=== PATIENT | female | born 2000 | race Caucasian/White ===

== ENCOUNTER 2023-11-23 17:59 | Emergency (ER) | payer OTHER ==
[~2023-11-23] VITALS: Ht 165.1 cm; Wt 62.6 kg
[2023-11-23 18:05] VITALS: BP_SYST 120; PULSE 109; RESP 18; TEMP 99.5; O2SAT 99
[2023-11-23] MEDS: IBUPROFEN 600 MG TABLET PO ONE (18:27)
[2023-11-23 18:49] LABS: BILIRUBIN,URINE NEGATIVE (NEGATIVE); BLOOD, URINE 1+ (NEGATIVE); COLOR,URINE YELLOW (YELLOW); GLUCOSE,URINE NEGATIVE (NEGATIVE); KETONES,URINE NEGATIVE (NEGATIVE); LEUKOCYTE ESTERASE ,URINE 1+ (NEGATIVE); NITRITE, URINE NEGATIVE (NEGATIVE); PROTEIN URINE NEGATIVE (NEGATIVE); UROBILINOGEN,URINE 0.2 (0.2-1.0)
[2023-11-23 18:50] LABS: CLARITY/URINE HAZY (CLEAR)
[2023-11-23 18:59] LABS: BACTERIA,URINE MODERATE /HPF (None Seen); MUCUS,URINE 1+ /LPF (None Seen)
[2023-11-23] MEDS ORDERED: NITR-85 PO (20:24)
[2023-11-23] MEDS: NITROFURANTOIN MONOHYD/M-CRYST 100 MG CAPSULE (MacroBID) PO ONE (20:37)
[2023-11-23 20:40] VITALS: BP_SYST 120; PULSE 109; RESP 18; TEMP 99.5; O2SAT 99
== END 2023-11-23 20:40 | disposition home or self-care (01) ==
LOC: SED 17:59
DX: M54.50 Low back pain, unspecified (principal); N39.0 Urinary tract infection, site not specified; Z79.899 Other long term (current) drug therapy
CPT/HCPCS: 81000; 81001; 81015; 87086; 99283

== ENCOUNTER 2024-01-05 20:37 | Emergency (ER) | payer OTHER ==
[~2024-01-05] VITALS: Ht 165.1 cm; Wt 59.9 kg
[~2024-01-05 20:37] MED LIST: NITR-85 PO
[2024-01-05 20:59] VITALS: BP_SYST 105; PULSE 100; RESP 17; TEMP 99; O2SAT 98
[2024-01-05 22:29] LABS: BASOPHILS % (AUTO) 0.2 % (0.0-2.0); EOSINOPHILS % (AUTO) 0.4 % (0.0-4.0); HEMATOCRIT 35.8 % (36-48); LYMPHOCYTES # (AUTO) 1.5 K/uL (1.0-5.5); LYMPHOCYTES % (AUTO) 18.5 % (20.5-51.5); MEAN CORPUSCULAR HEMOGLOBIN 29 pg (27-31); MEAN CORPUSCULAR HGB CONC 33 % (32-36); MEAN CORPUSCULAR VOLUME 86 fL (79.0-98.0); MONOCYTES # (AUTO) 0.9 K/uL (0.0-1.0); NEUTROPHILS # (AUTO) 5.7 K/uL (1.8-7.7); NEUTROPHILS % (AUTO) 69.9 % (40.0-70.0); PLATELET COUNT (AUTO) 264 K/uL (130-430); RED BLOOD CELL COUNT(AUTO) 4.17 MIL/uL (4.2-6.2); RED CELL DISTRIBUTION WIDTH 13.9 % (9.0-15.0); WHITE BLOOD COUNT (AUTO) 8.2 K/uL (4.8-10.8)
[2024-01-05 22:30] LABS: CREATININE 0.75 mg/dL (0.55-1.30); POTASSIUM 3.6 mmol/L (3.5-5.1)
[2024-01-05] MEDS ORDERED: AUG875 PO (23:08)
[2024-01-05 23:09] LABS: ERYTHROCYTE SEDIMENTATION RATE 6 MM/HR (0-20)
[2024-01-05 23:20] VITALS: BP_SYST 94; PULSE 86; RESP 18; O2SAT 100
== END 2024-01-05 23:20 | disposition home or self-care (01) ==
LOC: SED 20:37
DX: I88.8 Other nonspecific lymphadenitis (principal); Z79.899 Other long term (current) drug therapy
CPT/HCPCS: 36415; 80048; 85025; 85651; 99283